=== PATIENT | female | born 1940 | race Caucasian/White ===

== ENCOUNTER 2016-10-07 15:45 | Inpatient (IN) | payer MEDICARE, OTHER ==
[~2016-10-07] VITALS: Ht 165.1 cm; Wt 76.7 kg
[2016-10-07 16:04] VITALS: BP 122/51
[2016-10-07] MEDS ORDERED: AMLO5TAB2 PO (16:14)
[2016-10-07] MEDS ORDERED: METO25TA2 PO (16:14)
[2016-10-07] MEDS ORDERED: LISI1TAB5 PO (16:14)
[2016-10-07] MEDS ORDERED: METF500T9 PO (16:15)
[2016-10-07] MEDS ORDERED: PRAV40TA2 PO (16:15)
[2016-10-07] MEDS ORDERED: MIRA25TA PO (16:15)
[2016-10-07] MEDS ORDERED: ONDANSETRON PF 4 MG/2 ML VIAL. IV PRN ×2 (16:15→17:00)
[2016-10-07] MEDS ORDERED: MAALOX:LIDO:APAP 6:2:1 ORAL SUSPENSION 180 ML BOTTLE. PO PRN ×2 (16:15→17:49)
[2016-10-07] MEDS ORDERED: CITA10TA8 PO (16:16)
[2016-10-07] MEDS ORDERED: MULT1TAB52 PO (16:16)
[2016-10-07] MEDS ORDERED: CHOL100013 PO (16:16)
[2016-10-07] MEDS ORDERED: UMEC1DIS IH (16:17)
[2016-10-07] MEDS ORDERED: TEMA15CA PO (16:17)
[2016-10-07] MEDS ORDERED: ASPI-612 PO (16:22)
[2016-10-07] MEDS ORDERED: ONDANSETRON ODT 4 MG TAB.RAPDIS PO PRN (17:15)
--- NOTE | 2016-10-07 17:20 | NUR ---
Admission: Patient direct admit to Dr. Stephenson. Patient assisted to floor via wheelchair accompanied by daughter Johnna and RN. Vitals assessed and stable. Patient reported symptoms of small bowel obstruction last week with continued nausea and loose stools. Reviewed orders and plan of care. Patient verbalized understanding and agreement of goals. Patient provided list of home medications. Call light with in reach. Will continue to monitor.
--- NOTE | 2016-10-07 17:22 | RAD ---
PA and lateral chest radiographs 10/07/2016 Clinical history: Shortness of breath and nausea. PA and lateral digital radiographs of the chest were obtained. No previous studies are available for comparison. Surgical clips are seen within the right upper quadrant of the abdomen consistent with a cholecystectomy. The cardiac silhouette is borderline enlarged. The thoracic aorta is tortuous. Atherosclerotic calcification of the thoracic aorta is seen. Emphysematous changes are seen involving both lungs. Blunting of the right costophrenic angle is seen which could reflect pleural thickening versus a small right pleural effusion. No acute pulmonary infiltrate is seen. No pneumothorax is noted. Degenerative changes are seen involving the thoracic spine and both shoulders. Impression: No acute pulmonary infiltrate is seen.
[2016-10-07 17:27] LABS: BASO # 0.1 x10^3/uL (0.0-0.2); BASO % 1 % (0-3); EOS # 0.1 x10^3/uL (0.0-0.7); EOS % 1 % (0-3); HEMATOCRIT 39.2 % (36.0-47.0); HEMOGLOBIN 13.1 g/dL (12.0-15.5); LYMPH # 1.7 x10^3/uL (1.0-4.8); LYMPH % 16 % (24-48); MEAN CORPUSCULAR HEMOGLOBIN 30 pg (25-35); MEAN CORPUSCULAR HGB CONC 33 g/dL (31-37); MEAN CORPUSCULAR VOLUME 90 fL (79-100); MONO % 9 % (0-9); NEUT # 7.9 x10^3uL (1.8-7.7); NEUT % 74 % (31-73); PLATELET COUNT 213 x10^3/uL (140-400); RED BLOOD COUNT 4.36 x10^6/uL (3.50-5.40); RED CELL DISTRIBUTION WIDTH 13.3 % (11.5-14.5); WHITE BLOOD COUNT 10.7 x10^3/uL (4.0-11.0)
[2016-10-07] MEDS ORDERED: IOHEXOL 300 MG/ML 75 ML VIAL. IV ONE (17:30)
[2016-10-07] MEDS ORDERED: CONTRAST GIVEN MC PRN (17:30)
[2016-10-07] MEDS ORDERED: IOHEXOL 240 MG/ML 50ML VIAL. PO ONE (17:30)
--- NOTE | 2016-10-07 17:38 | NUR ---
Nursing: Unsuccessful IV initiation attempted by Kaylen, RN, Roro, RN and Lyla RN. Jes paged to start IV. Will continue to monitor.
[2016-10-07 17:43] LABS: ALBUMIN 3.6 g/dL (3.4-5.0); ALBUMIN/GLOBULIN RATIO 1.1 (1.0-1.7); CALCIUM 9.9 mg/dL (8.5-10.1); CREATININE 0.9 mg/dL (0.6-1.0); POTASSIUM 3.6 mmol/L (3.5-5.1); TOTAL BILIRUBIN 0.4 mg/dL (0.2-1.0); TOTAL PROTEIN 6.8 g/dL (6.4-8.2)
[2016-10-07 19:00] VITALS: BP 121/67
--- NOTE | 2016-10-07 19:27 | RAD ---
CT Abdomen and Pelvis With Intravenous Contrast: History: Abdominal pain, nausea, vomiting, diarrhea for one week. History of colorectal cancer and lung cancer. Comparison: None. Technique: After administration of oral and intravenous contrast, 75 mL of Omnipaque 350, CT of the abdomen and pelvis was performed. Exposure: One or more of the following individualized dose reduction techniques were utilized for this examination: 1. Automated exposure control 2. Adjustment of the mA and/or kV according to patient size 3. Use of iterative reconstruction technique Findings: There is motion artifact at multiple levels which could obscure subtle abnormalities. Gallbladder is absent. Liver, spleen, and pancreas are unremarkable. Nonspecific left adrenal nodule measuring 1.7 cm is seen. Bilateral renal cysts are seen. Post surgical changes are seen involving the small bowels as well as the rectosigmoid junction. No bowel obstruction or inflammation is appreciated. No abdominal or pelvic lymphadenopathy is seen. Uterus is unremarkable. A few small fat-containing incisional hernia ventral hernias are seen. No suspicious osseous lesions are identified. Impression: 1. No acute abnormality identified in the abdomen or pelvis. 2. Several small fat-containing incisional ventral hernias. 3. Nonspecific left adrenal nodule measuring 1.7 cm. Comparison with previous cross-sectional imaging versus elective evaluation with adrenal protocol CT could be performed for further evaluation if this has not already been definitively characterized. Electronically signed by: Nestor Bird MD (10/07/2016 7:24 PM)
[2016-10-07] MEDS: IV NORMAL SALINE 1,000ML 1,000 ML IV SCH (19:30)
[2016-10-07] MEDS: ENOXAPARIN 40 MG/0.4 ML DISP.SYRIN. SQ SCH (20:52)
[2016-10-07 21:03] LABS: BACTERIA,URINE 0 /HPF (0-FEW); BILIRUBIN,URINE NEG (NEG); CLARITY,URINE CLEAR; COLOR,URINE STRAW; GLUCOSE,URINE NEG (NEG); NITRITE,URINE NEG (NEG); RBC,URINE OCC /HPF (0-2); SQUAMOUS EPITHELIAL CELL,UR FEW /LPF; UROBILINOGEN,URINE 0.2 mg/dL (0.2 mg/dL)
[2016-10-07] MEDS: TEMAZEPAM 15 MG CAPSULE PO SCH (22:57)
[2016-10-07] MEDS: MIRABEGRON 25 MG TAB.ER.24H PO SCH (22:57)
[2016-10-07 23:00] VITALS: BP 121/67
[2016-10-08 05:59] LABS: BASO # 0.1 x10^3/uL (0.0-0.2); BASO % 1 % (0-3); EOS # 0.1 x10^3/uL (0.0-0.7); EOS % 1 % (0-3); HEMATOCRIT 39.2 % (36.0-47.0); HEMOGLOBIN 13.2 g/dL (12.0-15.5); LYMPH # 1.2 x10^3/uL (1.0-4.8); LYMPH % 13 % (24-48); MEAN CORPUSCULAR HEMOGLOBIN 30 pg (25-35); MEAN CORPUSCULAR HGB CONC 34 g/dL (31-37); MEAN CORPUSCULAR VOLUME 90 fL (79-100); MONO # 0.9 x10^3/uL (0.0-1.1); MONO % 9 % (0-9); NEUT # 7.2 x10^3uL (1.8-7.7); NEUT % 76 % (31-73); PLATELET COUNT 197 x10^3/uL (140-400); RED BLOOD COUNT 4.38 x10^6/uL (3.50-5.40); RED CELL DISTRIBUTION WIDTH 13.1 % (11.5-14.5); WHITE BLOOD COUNT 9.5 x10^3/uL (4.0-11.0)
[2016-10-08 06:00] VITALS: BP 115/57
[2016-10-08 06:06] LABS: CALCIUM 9.2 mg/dL (8.5-10.1); CREATININE 0.7 mg/dL (0.6-1.0); GFR 81.6; POTASSIUM 3.5 mmol/L (3.5-5.1)
[2016-10-08] MEDS ORDERED: PANTOPRAZOLE IV PUSH 40 MG VIAL. IVP SCH (07:30)
[2016-10-08] MEDS: IV NORMAL SALINE 1,000ML 1,000 ML IV SCH ×4 (07:34→16:35)
[2016-10-08] MEDS: ACETAMINOPHEN 500 MG TABLET PO PRN ×2 (09:44→17:54)
[2016-10-08] MEDS ORDERED: METOCLOPRAMIDE 5 MG TABLET PO PRN (10:15)
[2016-10-08 10:23] VITALS: BP 100/61
[2016-10-08 10:26] LABS: BILIRUBIN,URINE NEG (NEG); CLARITY,URINE HAZY; COLOR,URINE YELLOW; GLUCOSE,URINE NEG (NEG); NITRITE,URINE NEG (NEG); UROBILINOGEN,URINE 0.2 mg/dL (0.2 mg/dL)
[2016-10-08 10:32] LABS: BACTERIA,URINE FEW /HPF (0-FEW); SQUAMOUS EPITHELIAL CELL,UR FEW /LPF
[2016-10-08 14:13] VITALS: BP 96/54
[2016-10-08 20:00] VITALS: BP 120/54
[2016-10-08] MEDS: ENOXAPARIN 40 MG/0.4 ML DISP.SYRIN. SQ SCH (21:03)
[2016-10-08] MEDS: MIRABEGRON 25 MG TAB.ER.24H PO SCH (21:03)
[2016-10-08] MEDS: TEMAZEPAM 15 MG CAPSULE PO SCH (21:03)
[2016-10-09] VITALS: BP 103/56
[2016-10-09] MEDS: IV NORMAL SALINE 1,000ML 1,000 ML IV SCH (02:04)
[2016-10-09] MEDS: ACETAMINOPHEN 500 MG TABLET PO PRN (04:51)
[2016-10-09 05:00] VITALS: BP 162/66
[2016-10-09] MEDS ORDERED: PANTOPRAZOLE 40 MG TABLET. PO SCH (07:30)
--- NOTE | 2016-10-09 10:05 | NUR ---
pt iv leaking, reddend. removed IV, pt refused another IV
[2016-10-09 10:29] LABS: BASO % 1 % (0-3); EOS # 0.1 x10^3/uL (0.0-0.7); EOS % 2 % (0-3); HEMATOCRIT 33.6 % (36.0-47.0); HEMOGLOBIN 11.3 g/dL (12.0-15.5); LYMPH # 1.3 x10^3/uL (1.0-4.8); LYMPH % 18 % (24-48); MEAN CORPUSCULAR HEMOGLOBIN 31 pg (25-35); MEAN CORPUSCULAR HGB CONC 34 g/dL (31-37); MEAN CORPUSCULAR VOLUME 91 fL (79-100); MONO # 0.7 x10^3/uL (0.0-1.1); MONO % 10 % (0-9); NEUT # 5.1 x10^3uL (1.8-7.7); NEUT % 70 % (31-73); PLATELET COUNT 175 x10^3/uL (140-400); RED BLOOD COUNT 3.71 x10^6/uL (3.50-5.40); RED CELL DISTRIBUTION WIDTH 13.2 % (11.5-14.5); WHITE BLOOD COUNT 7.2 x10^3/uL (4.0-11.0)
[2016-10-09 10:37] LABS: ALBUMIN 2.6 g/dL (3.4-5.0); ALBUMIN/GLOBULIN RATIO 0.9 (1.0-1.7); CALCIUM 9.2 mg/dL (8.5-10.1); CREATININE 0.7 mg/dL (0.6-1.0); GFR 81.6; POTASSIUM 3.5 mmol/L (3.5-5.1); TOTAL BILIRUBIN 0.3 mg/dL (0.2-1.0); TOTAL PROTEIN 5.6 g/dL (6.4-8.2)
[2016-10-09 11:22] VITALS: BP 120/56
[2016-10-09] MEDS ORDERED: METO5TAB PO (12:11)
[2016-10-09] MEDS ORDERED: PANT40TA5 PO (12:11)
--- NOTE | 2016-10-09 13:45 | NUR ---
pt verbalized understnading of dc instructions. pt had all belongings, iv was removed earlier d/t leaking. pt left with daughter
--- NOTE | 2016-10-10 12:44 | PN ---
DATE: 10/09/2016 A 76-year-old female who came in with severe nausea, vomiting, and possible bowel obstruction. She has had them in the past. Elevated blood sugars. Albumin 2.6 showing [id number] protein malnutrition. Otherwise, the patient is resting fairly comfortably making fairly good progress. She will be discharged home. She did have decrease in her oxygen saturations, especially when walking. Her oxygen saturation did drop as noted by respiratory therapy. The patient will be placed on oxygen at home for movement. Otherwise, she continues on her Protonix and other medications as noted. She will be discharged home. Follow up as an outpatient and follow up as indicated. IMPRESSION: Therefore of nausea, vomiting, dehydration and acute respiratory failure with exertion and dyspnea, [id number] protein malnutrition, and history of small-bowel obstruction from adhesions. DHIRAJ LUNDBERG MD DR: UYEN/maykel JOB#: [id number] / [id number]
== END 2016-10-09 13:47 | disposition home or self-care (01) | DRG 177 ==
LOC: 1 SOUTH 15:45
PROVIDERS: ADMIT Family Medicine; ATTEND Family Medicine
DX: J69.0 Pneumonitis due to inhalation of food and vomit (principal); J96.00 Acute respiratory failure, unspecified whether with hypoxia or hypercapnia; E43 Unspecified severe protein-calorie malnutrition; K56.5 Intestinal adhesions [bands] with obstruction (postinfection); E86.0 Dehydration; I10 Essential (primary) hypertension; J44.9 Chronic obstructive pulmonary disease, unspecified; Z85.038 Personal history of other malignant neoplasm of large intestine; Z85.118 Personal history of other malignant neoplasm of bronchus and lung; Z79.899 Other long term (current) drug therapy; Z87.891 Personal history of nicotine dependence; Z79.1 Long term (current) use of non-steroidal anti-inflammatories (NSAID); Z98.49 Cataract extraction status, unspecified eye; Z68.28 Body mass index [BMI] 28.0-28.9, adult
CPT/HCPCS: 36415; 71020; 74177; 80048; 80053; 81001; 82150; 82947; 83690; 85027; 87086; 94620; C9113; J1650; J1956; Q0162; Q9966; Q9967; J7030